=== PATIENT | male | born 1975 | race Caucasian/White ===

== ENCOUNTER 2017-02-27 16:03 | Emergency (ER) | payer OTHER | END 2017-02-27 17:04 | disposition home or self-care (01) | LOC: E/R 17:04 | DX: K08.89 Other specified disorders of teeth and supporting structures (principal) | CPT/HCPCS: 99283; Z7502 ==

== ENCOUNTER 2018-05-29 10:56 | Emergency (ER) | payer OTHER ==
[2018-05-29] MEDS: HYDROCODONE/APAP (5/325) TAB PO (11:46)
[2018-05-29] MEDS: ONDANSETRON (ODT) 4 MG TAB ODT (11:46)
[2018-05-29] MEDS ORDERED: CLINDAMYCIN 600 MG INJ IM (12:00)
[2018-05-29] MEDS: CLINDAMYCIN 300 MG INJ IM (12:00)
== END 2018-05-29 12:33 | disposition home or self-care (01) ==
LOC: FTE 10:56
DX: K08.9 Disorder of teeth and supporting structures, unspecified (principal); Z87.891 Personal history of nicotine dependence
CPT/HCPCS: 96372; 99284-25